=== PATIENT | male | born 1940 | race Caucasian/White ===

== ENCOUNTER → 2016-11-20 | Outpatient (CLI) | payer OTHER, MEDICARE ==
[2016-11-20 09:52] LABS: BASOPHILS # (AUTO) 0.03 10*3/UL; BASOPHILS % (AUTO) 0.3 % (0-1); IMM GRAN % (AUTO) 0.2 % (0-5); IMM GRAN# (AUTO) 0.02 10*3/UL; MEAN PLATELET VOLUME 11.1 FL (7.4-12.2); RDW COEFFICIENT OF VARIATION 14.9 % (11.5-14.5)
[2016-11-20 10:19] LABS: BILIRUBIN,TOTAL 0.7 mg/dL (0.3-1.2); BUN/CREATININE RATIO 20.9 (6-20); CALCIUM 9.2 mg/dL (8.7-10.7); CREATININE 1.1 mg/dL (0.70-1.50); POTASSIUM 4.3 meq/L (3.8-5.2); TOTAL PROTEIN 7.1 g/dL (6.1-8.0)
[2016-11-20 11:06] LABS: EOSINOPHILS % (AUTO) 2.3 % (0-8); HEMATOCRIT 39.7 % (42.0-52.0); LYMPHOCYTES # (AUTO) 5.05 10*3/uL; LYMPHOCYTES % (AUTO) 55.5 % (10-50); MEAN CORPUSCULAR HEMOGLOBIN 30.8 PG (27-31); MEAN CORPUSCULAR HGB CONC 32.7 g/dL (33-37); MONOCYTES # (AUTO) 0.65 10*3/UL (0.3-0.8); MONOCYTES % (AUTO) 7.1 % (5-15); NEUTROPHILS # (AUTO) 3.14 10*3/UL; NEUTROPHILS % (AUTO) 34.6 % (50-80); RED BLOOD COUNT 4.22 10^6/uL (4.70-6.10)
[2016-11-20 11:26] LABS: PLATELET MORPHOLOGY COMMENT NORMAL MORPHOLOGY (NORM)
== END ==
LOC: LAB 09:01
PROVIDERS: ATTEND Internal Medicine
DX: C91.10 Chronic lymphocytic leukemia of B-cell type not having achieved remission (principal)
CPT/HCPCS: 36415; 80053; 85025

== ENCOUNTER → 2016-11-30 | Outpatient (CLI) | payer OTHER, MEDICARE | LOC: MMPC 11:11 | DX: N39.0 Urinary tract infection, site not specified (principal); I10 Essential (primary) hypertension; G47.33 Obstructive sleep apnea (adult) (pediatric); E66.8 Other obesity; C91.10 Chronic lymphocytic leukemia of B-cell type not having achieved remission; M17.11 Unilateral primary osteoarthritis, right knee; N18.2 Chronic kidney disease, stage 2 (mild); E78.00 Pure hypercholesterolemia, unspecified; M10.9 Gout, unspecified | CPT/HCPCS: 99213; G0463 ==

== ENCOUNTER → 2017-01-06 | Outpatient (CLI) | payer OTHER, MEDICARE ==
[2017-01-06 17:06] LABS: BILIRUBIN,URINE NEGATIVE (NEG); CLARITY,URINE Slightly Clo (CLEAR); GLUCOSE, URINE (UA) NEGATIVE (NEG); LEUKOCYTE ESTERASE ,URINE LARGE (NEG); NITRATE,URINE NEGATIVE (NEG); OCCULT BLOOD,URINE SMALL (NEG); PH,URINE 6.5 (5.0-8.5); PROTEIN,URINE TRACE mg/dl (NEG); UROBILINOGEN,URINE 0.2 EU/dL (0.2)
[2017-01-06 17:09] LABS: BACTERIA,URINE MODERATE; RBC,URINE 20-25 /hpf; URINE SAMPLE TYPE VOIDED SPECIMEN; WBC,URINE >100
== END ==
LOC: LAB 16:52
DX: N39.0 Urinary tract infection, site not specified (principal); R82.99 Other abnormal findings in urine
CPT/HCPCS: 81001; 87077; 87088; 87186

== ENCOUNTER → 2017-01-20 | Outpatient (CLI) | payer OTHER, MEDICARE ==
[2017-01-20 08:48] LABS: BASOPHILS # (AUTO) 0.03 10*3/UL; BASOPHILS % (AUTO) 0.3 % (0-1); EOSINOPHILS # (AUTO) 0.18 10*3/UL; EOSINOPHILS % (AUTO) 1.7 % (0-8); HEMOGLOBIN 14.1 g/dL (14.0-18.0); LYMPHOCYTES # (AUTO) 6.28 10*3/uL; MEAN CORPUSCULAR HEMOGLOBIN 29.8 PG (27-31); MEAN CORPUSCULAR HGB CONC 33.6 g/dL (33-37); MEAN CORPUSCULAR VOLUME 88.8 FL (80-90); MEAN PLATELET VOLUME 9.6 FL (7.4-12.2); MONOCYTES % (AUTO) 5.6 % (5-15); NEUTROPHILS # (AUTO) 3.53 10*3/UL; NEUTROPHILS % (AUTO) 33.2 % (50-80); RED BLOOD COUNT 4.73 10^6/uL (4.70-6.10)
[2017-01-20 09:07] LABS: PLATELET MORPHOLOGY COMMENT NORMAL MORPHOLOGY (NORM); RBC MORPHOLOGY COMMENT NORMAL MORPHOLOGY (NORM); WBC MORPHOLOGY COMMENT NORMAL MORPHOLOGY (NORM)
[2017-01-20 09:18] LABS: BUN/CREATININE RATIO 22.72 (6-20); CALCIUM 9.1 mg/dL (8.7-10.7); SERUM ALBUMIN 4.5 g/dL (3.5-4.8)
== END ==
LOC: LAB 08:31
PROVIDERS: ATTEND Internal Medicine
DX: C91.10 Chronic lymphocytic leukemia of B-cell type not having achieved remission (principal)
CPT/HCPCS: 36415; 80053; 85025

== ENCOUNTER → 2017-03-01 | Outpatient (CLI) | payer OTHER, MEDICARE | LOC: MMPC 11:11 | DX: N39.0 Urinary tract infection, site not specified (principal); I10 Essential (primary) hypertension; G47.33 Obstructive sleep apnea (adult) (pediatric); E66.8 Other obesity; C91.10 Chronic lymphocytic leukemia of B-cell type not having achieved remission; E78.00 Pure hypercholesterolemia, unspecified; M17.11 Unilateral primary osteoarthritis, right knee; N18.2 Chronic kidney disease, stage 2 (mild) | CPT/HCPCS: 99213; G0463 ==

== ENCOUNTER → 2017-04-02 | Outpatient (CLI) | payer OTHER, MEDICARE | LOC: MMPC 10:00 | PROVIDERS: ATTEND Orthopaedic Surgery | DX: M17.11 Unilateral primary osteoarthritis, right knee (principal) | CPT/HCPCS: 20610 ×2; 99213; G0463; J0702; J7325 ==

== ENCOUNTER → 2017-04-05 | Outpatient (CLI) | payer OTHER, MEDICARE ==
[2017-04-05 09:17] LABS: HEMOGLOBIN 13.5 g/dL (14.0-18.0); MEAN CORPUSCULAR HEMOGLOBIN 29.5 PG (27-31); MEAN CORPUSCULAR HGB CONC 32.9 g/dL (33-37); MEAN CORPUSCULAR VOLUME 89.7 FL (80-90); MEAN PLATELET VOLUME 11.4 FL (7.4-12.2); RED BLOOD COUNT 4.57 10^6/uL (4.70-6.10)
[2017-04-05 09:41] LABS: BUN/CREATININE RATIO 30.9 (6-20); CALCIUM 8.8 mg/dL (8.7-10.7); PHOSPHORUS 4.3 mg/dl (2.4-4.3); SERUM ALBUMIN 4.6 g/dL (3.5-4.8)
[2017-04-05 09:59] LABS: VITAMIN D 25-HYDROXY 58.8 NG/ML (30-100)
== END ==
LOC: LAB 08:41
PROVIDERS: ATTEND Internal Medicine Nephrology
DX: N18.2 Chronic kidney disease, stage 2 (mild) (principal); D63.1 Anemia in chronic kidney disease; N25.81 Secondary hyperparathyroidism of renal origin
CPT/HCPCS: 80069; 82306; 82565; 82728; 83540; 83550; 83970; 84156; 85027

== ENCOUNTER → 2017-04-26 | Outpatient (CLI) | payer OTHER, MEDICARE ==
[2017-04-26 08:51] LABS: BUN/CREATININE RATIO 23.07 (6-20); SERUM ALBUMIN 4.4 g/dL (3.5-4.8)
[2017-04-26 08:53] LABS: BASOPHILS # (AUTO) 0.03 10*3/UL; BASOPHILS % (AUTO) 0.3 % (0-1); EOSINOPHILS # (AUTO) 0.14 10*3/UL; EOSINOPHILS % (AUTO) 1.3 % (0-8); HEMATOCRIT 39.8 % (42.0-52.0); LYMPHOCYTES # (AUTO) 6.65 10*3/uL; MEAN CORPUSCULAR HEMOGLOBIN 29.7 PG (27-31); MEAN CORPUSCULAR HGB CONC 32.7 g/dL (33-37); MEAN CORPUSCULAR VOLUME 91.1 FL (80-90); MEAN PLATELET VOLUME 11.3 FL (7.4-12.2); MONOCYTES # (AUTO) 0.68 10*3/UL (0.3-0.8); MONOCYTES % (AUTO) 6.1 % (5-15); NEUTROPHILS # (AUTO) 3.53 10*3/UL; NEUTROPHILS % (AUTO) 31.9 % (50-80); RED BLOOD COUNT 4.37 10^6/uL (4.70-6.10)
[2017-04-26 09:17] LABS: BUN/CREATININE RATIO 23.84 (6-20); PHOSPHORUS 4.2 mg/dl (2.4-4.3); SERUM ALBUMIN 4.4 g/dL (3.5-4.8)
[2017-04-26 09:17] LABS: PLATELET MORPHOLOGY COMMENT NORMAL MORPHOLOGY (NORM); RBC MORPHOLOGY COMMENT NORMAL MORPHOLOGY (NORM); WBC MORPHOLOGY COMMENT NORMAL MORPHOLOGY (NORM)
== END ==
LOC: LAB 08:19
PROVIDERS: ATTEND Internal Medicine
DX: C91.10 Chronic lymphocytic leukemia of B-cell type not having achieved remission (principal); N18.2 Chronic kidney disease, stage 2 (mild)
CPT/HCPCS: 36415; 80053; 80069; 83615; 85025

== ENCOUNTER → 2017-05-05 | Outpatient (CLI) | payer OTHER, MEDICARE ==
[2017-05-05 10:13] LABS: BILIRUBIN,URINE NEGATIVE (NEG); CLARITY,URINE CLEAR (CLEAR); COLOR,URINE YELLOW; GLUCOSE, URINE (UA) NEGATIVE (NEG); NITRATE,URINE NEGATIVE (NEG); OCCULT BLOOD,URINE MODERATE (NEG); PH,URINE 5.5 (5.0-8.5); PROTEIN,URINE 100 mg/dl (NEG); UROBILINOGEN,URINE 0.2 EU/dL (0.2)
[2017-05-05 10:24] LABS: BACTERIA,URINE MODERATE; SQUAMOUS EPITHELIAL CELL,UR RARE; URINE SAMPLE TYPE CLEAN CATCH URINE; WBC,URINE 60-80
== END ==
LOC: LAB 09:51
DX: N39.0 Urinary tract infection, site not specified (principal); R30.0 Dysuria; R82.99 Other abnormal findings in urine
CPT/HCPCS: 81001; 87077; 87088; 87186

== ENCOUNTER → 2017-06-01 | Outpatient (CLI) | payer OTHER, MEDICARE | LOC: MMPC 11:11 | DX: N39.0 Urinary tract infection, site not specified (principal); I10 Essential (primary) hypertension; G47.33 Obstructive sleep apnea (adult) (pediatric); E66.8 Other obesity; N18.2 Chronic kidney disease, stage 2 (mild); M17.11 Unilateral primary osteoarthritis, right knee; E78.00 Pure hypercholesterolemia, unspecified; C91.10 Chronic lymphocytic leukemia of B-cell type not having achieved remission | CPT/HCPCS: 99213; G0463 ==